=== PATIENT | female | born 1935 | race African-American/Black ===

== ENCOUNTER 2024-02-08 13:11 | Emergency (ER) | payer OTHER ==
[2024-02-08 13:41] VITALS: BMI 23.6
[2024-02-08 16:02] VITALS: BP 185/57; PULSE 57; RESP 18; TEMP 98.7
== END 2024-02-08 16:28 | disposition home or self-care (01) ==
LOC: JER 13:11
DX: I10 Essential (primary) hypertension (principal)
CPT/HCPCS: 99283-25